=== PATIENT | male | born 1955 | race Caucasian/White ===

== ENCOUNTER 2018-06-01 05:33 | Day surgery (SDC) | payer OTHER, SELFPAY ==
[2018-06-01] VITALS (8 sets, daily range): BP systolic 88–134; BP diastolic 65–80; PULSE 59–84; RESP 16–18; TEMP 36.1–36.7; O2SAT 5–100; BMI 32.8
--- NOTE | 2018-06-01 06:11 | HP.PCM_ITS ---
Problem List (1) Screening for intestinal cancer Status: Acute History of Present Illness Date of Admission: 06/01/18 The patient is a 63 year old M who presents for a high risk screening colonoscopy for colon cancer. He has had a previous history of colon polyps. Dr. Dimitry Zavala is performed a previous colonoscopy with polypectomy 5 years ago. The patient does not currently have any GI complaints. No abdominal pain. No bright red blood per rectum or melena. He is overweight. He does have fatty liver. He denies any heart or lung disease. He said no history of DVT. He otherwise is feeling well currently. He was able to tolerate his bowel prep. Past Medical History Allergies No Known Allergies Allergy (Verified 06/01/18 05:50) Home Medications: Ambulatory Orders Medication Instructions Recorded Lisinopril [Zestril] 5 mg PO DAILY 05/27/18 Smoking Status: Former smoker Tobacco Use: Non-smoker Review of Systems Constitutional: Denies: Anorexia HEENT: Denies: Difficulty Swallowing Cardiovascular: Denies: Chest Pain, Claudication Respiratory: Denies: Cough Gastrointestinal: Denies: Abdominal Pain, Hematemesis Neurological: Denies: Balance problems Psychiatric: Denies: Anxiety Endocrine: Denies: Change in Body Habitus VTE Information - Inpt Only VTE Present on Admission: No Patient Problems: Active and Suspected Problems Screening for intestinal cancer (Acute) - Physical Exam General: Alert, Oriented x3, Cooperative, No apparent distress HEENT: Atraumatic Oral: Moist Mucosa Neck: Supple, Negative Carotid Bruits Lungs: Clear to auscultation Cardiovascular: Regular rate, Regular Rhythm Abdomen: Bowel Sounds Present, Soft, Non Tender, Non-Distended Extremities: No Calf Tenderness Skin: No rashes Lymphatic: No Cervical, Supraclavicular, or Inguinal Adenopathy Neurological: Cranial nerves II-XII grossly intact Psych/Mental Status: Normal Affect Vital Signs Temp Pulse Resp BP Pulse Ox 98.0 F 59 L 18 112/73 98 06/01/18 05:51 06/01/18 05:51 06/01/18 05:51 06/01/18 05:51 06/01/18 05:51 Oxygen Delivery Method Room Air Weight: 215 lb 9.793 oz Body Mass Index (BMI) 32.8 Assessment/Plan All Active Problems Screening for intestinal cancer (Acute) I am recommending a screening colonoscopy. The patient has a personal history of colon polyps. No family history of colon cancer. He is aware the technique, benefits, risks and alternatives. He has had an opportunity to ask and have questions answered. We will proceed at his discretion. He presents via open access today. Primary care physician is Dr. Javier Torres, [facility] Josias Torres M.D., F.A.C.S.
--- NOTE | 2018-06-01 06:30 | COLBX_PTH ---
PATIENT: SALVATORE SCHWARTZ LOC: EN U#:[id number] AGE/SX: 63/M ROOM: RE06/01/[address]: Dr. Josias Torres MD : 1955 BED: DIS: 06/01/2018 SPEC #: [id number] RECD: 06/01/18 11:58 STATUS: TUYET CARLOS #: [id number] JUAN: 06/01/18 06:[address]: Josias Torres DEPT: SURGICAL PATHOLOGY RECD BY: Gerardo Sosa ENTERED: 06/01/18 13:34 SP TYPE: COLON BX OTHR DR: Dr. Javier Torres III, MD Tissues: COLON BIOPSY Procedures: Surgery Specimen Level IV HEADER OPERATION: Colonoscopy - open access (MOD) PRE-OP DIAGNOSIS: Screening TISSUE SUBMITTED: Cold snare polyp hepatic flexure MICROSCOPIC DIAGNOSIS Polyp hepatic flexure, biopsy: Fragments of hyperplastic polyp. SJ:clayton 06/02/18 MICROSCOPIC DESCRIPTION Slides are reviewed. GROSS DESCRIPTION Received in fixative is one container labeled with the patient's name and designated polyp hepatic flexure. The specimen consists of multiple irregular fragments of olvera soft tissue mixed with fecal material that in aggregate measure 2 x 1 x 0.1 cm. The specimen is totally submitted in one cassette. / SJ:rg 06/01/18 TC:1 CPT: 00764
--- NOTE | 2018-06-01 07:00 | OP.ENDO_ITS ---
Patient Name: Manuel Garza Procedure Date: 06/01/2018 6:11 AM Date of : 1955 Age: 63 Procedure: Colonoscopy Indications: High risk colon cancer surveillance: Personal history of colonic polyps Providers: Josias Torres MD Medicines: Meperidine 100 mg IV, Midazolam 3.5 mg IV Patient Profile: Last Colonoscopy: 5 years ago. Complications: No immediate complications. Procedure: Pre-Anesthesia Assessment: - Prior to the procedure, a History and Physical was performed, and patient medications and allergies were reviewed. The patient's tolerance of previous anesthesia was also reviewed. The risks and benefits of the procedure and the sedation options and risks were discussed with the patient. All questions were answered, and informed consent was obtained. Prior Anticoagulants: The patient has taken no previous anticoagulant or antiplatelet agents. ASA Grade Assessment: II - A patient with mild systemic disease. After reviewing the risks and benefits, the patient was deemed in satisfactory condition to undergo the procedure. After I obtained informed consent, the scope was passed under direct vision. Throughout the procedure, the patient's blood pressure, pulse, and oxygen saturations were monitored continuously. The colonoscope was introduced through the anus and advanced to the cecum, identified by appendiceal orifice and ileocecal valve. The colonoscopy was performed without difficulty. The patient tolerated the procedure well. The quality of the bowel preparation was good. Moderate Sedation: Moderate (conscious) sedation was personally administered by the endoscopist. The following parameters were monitored: oxygen saturation, heart rate, blood pressure, and response to care. Total physician intraservice time was 20 minutes. Scope In: 6:32:07 AM Scope Withdrawal Time 0 hours 17 minutes 30 seconds Scope Out: 6:52:55 AM Total Procedure Duration Time 0 hours 20 minutes 48 seconds Findings: The digital rectal exam findings include tight anal tone. Difficult to palpate prostate, Mild hemorrhoidal changes. A 15 mm polyp was found in the hepatic flexure. The polyp was sessile. The polyp was removed with a cold snare. Resection and retrieval were complete. To prevent bleeding post-intervention, three hemostatic clips were successfully placed. There was no bleeding at the end of the procedure. The exam was otherwise without abnormality. Impression: - Tight anal tone. Difficult to palpate prostate, Mild hemorrhoidal changes found on digital rectal exam. - One 15 mm polyp at the hepatic flexure, removed with a cold snare. Resected and retrieved. Clips were placed. - The examination was otherwise normal. Recommendation: - Discharge patient to home. - Resume previous diet. - Continue present medications. - Repeat colonoscopy in 3 years for surveillance. Location, sessile, and size of lesion - Telephone my office for pathology results in 1 week. Procedure Code(s): --- Professional --- 18313, Colonoscopy, flexible; with removal of tumor(s), polyp(s), or other lesion(s) by snare technique [id number], 59, Moderate sedation services provided by the same physician or other qualified health care tech performing the diagnostic or therapeutic service that the sedation supports, requiring the presence of an independent trained observer to assist in the monitoring of the patient's level of consciousness and physiological status; initial 15 minutes of intraservice time, patient age 5 years or older Diagnosis Code(s): --- Professional --- Z86.010, Personal history of colonic polyps D12.3, Benign neoplasm of transverse colon (hepatic flexure or splenic flexure) CPT copyright 2017 [employer]. All rights reserved. The codes documented in this report are preliminary and upon community youth secretary review may be revised to meet current compliance requirements. Josias Torres MD 06/01/2018 6:59:44 AM This report has been signed electronically. Number of Addenda: 0 Note Initiated On: 06/01/2018 6:11 AM
== END 2018-06-01 08:07 | disposition home or self-care (01) ==
LOC: EN 05:34 → AC 05:36
PROVIDERS: Family Provider Family Medicine; PCP Family Medicine; Referring Provider Surgery; Visit Provider Surgery
PROC: 0DJD8ZZ Inspection of Lower Intestinal Tract, Via Natural or Artificial Opening Endoscopic (ICD-10-PCS; CPT 45378; principal; 2018-06-01 06:25)
DX: Z12.11 Encounter for screening for malignant neoplasm of colon (principal); K63.5 Polyp of colon; K76.0 Fatty (change of) liver, not elsewhere classified; E66.3 Overweight; Z68.32 Body mass index [BMI] 32.0-32.9, adult; Z87.891 Personal history of nicotine dependence
CPT/HCPCS: 45380; 88305; 99152; 99153; J7120